=== PATIENT | male | born 1960 | race Caucasian/White ===

== ENCOUNTER → 2016-09-03 | Outpatient (CLI) | payer MEDICAID ==
[~2016-09-03] MED LIST: ALDACTONE25 MG NG; ALDACTONE50 MG PO; BUPROPION HCL75 M1 PO; CHRONULAC 30ML30 ML PO; CIPRO 500MG TA500 MG PO; FLAGYL 500MG.500 MG PO; FUROSEMIDE 20MG20 MG FT; FUROSEMIDE 20MG20 MG PO; GLYCOLAX17 GM/DOSE PO; LACTULOSE10 GM/15 M PO; NADOLOL20 MG PO; NICOTINE PATCH;21 MG TD; OXAZEPAM 10MG C10 M1 PO; PANTOPRAZOLE SO40 M1 PO; SPIRONOLACTONE100 MG PO; SPIRONOLACTONE25 MG PO; XIFAXAN550 MG PO
[2016-09-03 09:08] LABS: HEMOGLOBIN 15.8 g/dL (14.1-18.0); LYMPH # 1.2 K/mm3 (0.7-4.5); LYMPH % 23.4 % (10-50)
[2016-09-03 10:37] LABS: BUN 18 mg/dL (7-18)
[2016-09-03 10:41] LABS: GFR (ESTIMATED) 70 ML/MIN (>60)
== END ==
LOC: LAB 08:42
PROVIDERS: Transplant Surgery
DX: K74.60 Unspecified cirrhosis of liver (principal); Z94.4 Liver transplant status

== ENCOUNTER → 2017-01-05 | Outpatient (CLI) | payer MEDICAID ==
[2017-01-05 09:35] LABS: HEMOGLOBIN 16.4 g/dL (14.1-18.0); LYMPH # 1.5 K/mm3 (0.7-4.5); LYMPH % 28.7 % (10-50)
[2017-01-05 17:00] LABS: BUN 18 mg/dL (7-18)
[2017-01-05 17:30] LABS: GFR (ESTIMATED) 78 ML/MIN (>60)
== END ==
LOC: LAB 09:05
PROVIDERS: Transplant Surgery
DX: K74.60 Unspecified cirrhosis of liver (principal); Z94.4 Liver transplant status

== ENCOUNTER → 2017-02-06 | Outpatient (CLI) | payer MEDICAID ==
[2017-02-06 08:26] LABS: HEMOGLOBIN 16.1 g/dL (14.1-18.0); LYMPH # 1.5 K/mm3 (0.7-4.5); LYMPH % 28.7 % (10-50)
[2017-02-06 08:59] LABS: BUN 13 mg/dL (7-18)
[2017-02-06 09:10] LABS: GFR (ESTIMATED) 70 ML/MIN (>60)
== END ==
LOC: LAB 07:53
PROVIDERS: Transplant Surgery
DX: K74.60 Unspecified cirrhosis of liver (principal); Z94.4 Liver transplant status

== ENCOUNTER 2017-02-24 07:31 | Day surgery (SDC) | payer MEDICARE ==
[2017-02-24 10:41] VITALS: BP 131/92
== END 2017-02-24 10:35 | disposition home or self-care (01) ==
LOC: SDC 07:31
PROVIDERS: Ophthalmology
PROC: 08RK3JZ Replacement of Left Lens with Synthetic Substitute, Percutaneous Approach (ICD-10-PCS; principal; 2017-02-24 10:00)
DX: H25.9 Unspecified age-related cataract (principal); H53.8 Other visual disturbances
CPT/HCPCS: V2632

== ENCOUNTER → 2017-03-13 | Outpatient (CLI) | payer MEDICARE ==
[2017-03-13 11:12] LABS: HEMOGLOBIN 16.6 g/dL (14.1-18.0); LYMPH # 1.5 K/mm3 (0.7-4.5); LYMPH % 28.6 % (10-50)
[2017-03-13 12:23] LABS: BUN 14 mg/dL (7-18)
[2017-03-13 12:29] LABS: GFR (ESTIMATED) 63 ML/MIN (>60)
== END ==
LOC: LAB 09:54
PROVIDERS: Transplant Surgery
DX: K74.60 Unspecified cirrhosis of liver (principal); Z94.4 Liver transplant status